=== PATIENT | male | born 1955 | race Caucasian/White ===

== ENCOUNTER 2016-10-07 05:58 | Inpatient (IN) | payer BC ==
[2016-09-24 15:30] VITALS: BMI 33.0
--- NOTE | 2016-09-24 15:57 | PAT Medication Instructions ---
Service Date Sep 24, 2016. Current Home Medication List Fish Oil ([place]-3), 1 CAP PO QAM Tqvlhzjremw-Qmdqohyeogk-Tkwvdb (Move Free Joint Health Ad), 1 TAB PO QAM Lisinopril (Zestril), 30 MG PO QAM Meloxicam (Mobic), 15 MG PO QAM Metformin Hcl (Glucophage), 1,000 MG PO BID Multivitamin (Multivitamin), 1 TAB PO QAM Sitagliptin Phosphate (Januvia), 100 MG PO QAM Medication Instructions For Your Scheduled Surgery - Hold the following medications as of 09/25/16: Fish Oil ([place]-3), 1 CAP PO QAM Mkfcjukhaqu-Bsecqtikmsm-Stlpwv (Move Free Joint Health Ad), 1 TAB PO QAM - Hold the following medications 48 hours prior to surgery: Metformin Hcl (Glucophage), 1,000 MG PO BID - Hold the following medications the morning of surgery: Lisinopril (Zestril), 30 MG PO QAM Multivitamin (Multivitamin), 1 TAB PO QAM Sitagliptin Phosphate (Januvia), 100 MG PO QAM Meloxicam (Mobic), 15 MG PO QAM (otherwise okay to continue per surgeon) Nothing to eat or drink after midnight If you have any questions please call us at [phone] or [phone] or [phone]
--- NOTE | 2016-09-24 16:36 | DIAGNOSTIC IMAGING REPORT ---
CHEST PREADMISSION(PA/LAT) CLINICAL HISTORY: PAT preoperative evaluation COMPARISON STUDY: No previous studies for comparison. FINDINGS: The bones soft tissues and hemidiaphragms are normal. The cardiomediastinal silhouette is normal. The lungs are clear. The pulmonary vasculature is normal. IMPRESSION: Negative chest. The above report was generated using voice recognition software. It may contain grammatical, syntax or spelling errors. Electronically signed by: Gold Mitchell M.D. 09/24/2016 4:35 PM Dictated Date/Time: 09/24/2016 4:35 PM
[2016-09-24 16:37] LABS: BASO % 0.2 %; BASO ABS # 0.01 K/uL (0-0.2); COMPLETE YES; EOS % 1.2 %; HEMATOCRIT 40.1 % (42-52); LYMPH % 30.5 %; LYMPH ABS # 1.23 K/uL (1.2-3.4); MEAN CELL VOLUME 90.5 fL (80-100); MEAN CORPUSCULAR HEMOGLOBIN 31.4 pg (25-34); MEAN CORPUSCULAR HGB CONC 34.7 g/dl (32-36); MEAN PLATELET VOLUME 9.3 fL (7.4-10.4); MONO % 11.9 %; NEUT % 56.2 %; PLATELET COUNT 212 K/uL (130-400); RED BLOOD COUNT 4.43 M/uL (4.7-6.1); WHITE BLOOD COUNT 4.03 K/uL (4.8-10.8)
[2016-09-24 16:40] LABS: URINE APPEARANCE CLEAR (CLEAR); URINE BILIRUBIN NEG (NEG); URINE COLOR YELLOW; URINE NITRITE NEG (NEG); URINE PH 7.5 (4.5-7.5); URINE SPECIFIC GRAVITY 1.022 (1.000-1.030); UROBILINOGEN NEG (NEG)
[2016-09-24 16:44] LABS: CALCIUM 8.6 mg/dl (8.5-10.1); CREATININE 0.88 mg/dl (0.60-1.40)
[2016-09-24 16:49] LABS: MANUAL MICROSCOPIC REQUIRED? NO; REVIEW REQ? NO
[2016-09-24 16:52] LABS: PARTIAL THROMBOPLASTIN RATIO 0.9; PROTHROMBIN TIME (PATIENT) 10.6 SECONDS (9.0-12.0)
[2016-09-25 07:43] LABS: ESTIMATED AVERAGE GLUCOSE 160 mg/dl; HA1C FLAG Normal (Normal)
--- NOTE | 2016-10-04 14:58 | HISTORY & PHYSICAL EXAMINATION ---
DATE OF ADMISSION: 10/07/2016 CHIEF COMPLAINT: Bilateral knee pain. HISTORY OF PRESENT ILLNESS: The patient is a 61-year-old gentleman with known severe osteoarthritis about his bilateral knees. He has been doctoring with an outside physician. He takes diclofenac daily. He presented to our office for evaluation as a potential knee replacement candidate. He now desires to proceed with bilateral total knee arthroplasty. PAST MEDICAL HISTORY: Hypertension and type 2 diabetes. PAST SURGICAL HISTORY: Two surgeries on the left knee and one surgery on the right knee. MEDICATIONS: Include glyburide 5 mg q.a.m. before breakfast, metformin 500 mg 2 times daily, lisinopril 20 mg daily, diclofenac sodium 75 mg twice daily, and fish oil daily. ALLERGIES: No known drug allergies. SOCIAL HISTORY AND REVIEW OF SYSTEMS: Noncontributory. PHYSICAL EXAMINATION: GENERAL: Well-nourished and well-developed male who appears his stated age. HEENT: Normocephalic and atraumatic. Extraocular movements intact. Oropharynx is pink and moist. NECK: Supple without adenopathy. LUNGS: Clear to auscultation bilaterally. HEART: Regular rate and rhythm. ABDOMEN: Soft, nontender, and nondistended. EXTREMITIES: The upper extremities are within normal limits. The bilateral knees have a severe varus deformity. He complains primarily of medial compartment pain. His range of motion is from 0-120 degrees. X-RAYS: X-rays were reviewed. He has severe varus aligned knees. He has complete loss of the medial joint space in both knees. He has medial osteophytes bilaterally. He has moderate degenerative change about the bilateral patellofemoral joints as well. ASSESSMENT: Bilateral knee degenerative joint disease. PLAN: Risks versus benefits were discussed and consent was obtained. The patient's primary care physician is Dr. Johnson from [place]. We will proceed with bilateral total knee arthroplasty upon preoperative workup and medical clearance.
[2016-10-07] VITALS (19 sets, daily range): BP systolic 111–158; BP diastolic 65–100; PULSE 61–97; TEMP 36.3–36.7; O2SAT 95–99; Ht 177.8 cm; Wt 103.6 kg
[~2016-10-07] VITALS: Ht 177.8 cm; Wt 103.6 kg
[~2016-10-07 05:58] MED LIST: GLUC1TAB94 PO; LISI1TAB3 PO; MELO7.5T5 PO; METF-384 PO; MULT-506 PO; OMEG10007 PO; SITA100T3 PO
[2016-10-07] MEDS ORDERED: CeleBREX 200 MG CAP PO SCH (06:00)
[2016-10-07] MEDS ORDERED: LACTATED RINGER'S 1000ML IV SCH (06:00)
[2016-10-07] MEDS ORDERED: LACTATED RINGER'S 1000ML 1,000 ML IV SCH (06:00)
[2016-10-07] MEDS ORDERED: ROPIVACAINE 5MG/ML 30 ML 150 MG, BUPIVACAINE/EPINEPHR 0.5% MPF 30 ML, KETOROLAC TROMETH... INFIL SCH ×7 (06:00)
[2016-10-07] MEDS ORDERED: ACETAMINOPHEN 500 MG TAB PO SCH (06:00)
[2016-10-07] MEDS ORDERED: CEFAZOLIN 2000 MG/60 ML D5W 60 ML IV SCH (06:00)
[2016-10-07] MEDS ORDERED: LACTATED RINGER'S 1000ML 500 ML IV ONE (06:00)
[2016-10-07] MEDS ORDERED: DEXAMETHASONE 4 MG TAB PO SCH (06:00)
[2016-10-07] MEDS ORDERED: GABAPENTIN 300 MG CAP PO SCH (06:00)
[2016-10-07] MEDS ORDERED: METOCLOPRAMIDE HCL 10 MG TAB PO SCH (06:00)
[2016-10-07] MEDS ORDERED: FAMOTIDINE 20 MG TAB PO SCH (06:00)
[2016-10-07] MEDS ORDERED: PROPOFOL IV EMULSION 10 MG/ML 20 ML VIAL IV ONE ×2 (06:44→10:05)
[2016-10-07] MEDS ORDERED: FENTANYL CITRATE INJ 50 MCG/1 ML 2 ML VIAL ONE ×3 (06:44→10:12)
[2016-10-07] MEDS ORDERED: LIDOCAINE HCL 2% 2 ML VIAL (20MG/ML) ONE (06:44)
[2016-10-07] MEDS ORDERED: MIDAZOLAM HCL 1 MG/ML 2ML VIAL ONE (06:44)
--- NOTE | 2016-10-07 07:02 | History & Physical Bridge Note ---
H&P Re-Evaluation Bridge Note: I have examined the patient, reviewed the History & Physical and in the interval since the performance of the History & Physical I have noted the following changes of clinical significance: No changes noted
[2016-10-07] MEDS ORDERED: BUPIVACAINE 0.5 % 5 MG/1 ML PF 10ML VIAL ONE (07:28)
[2016-10-07] MEDS ORDERED: BUPIVACAINE 0.25% 30 ML VIAL ONE (07:28)
[2016-10-07] MEDS ORDERED: ATROPINE SULFATE 0.1 MG/ML 5ML SYR IV PRN (07:45)
[2016-10-07] MEDS ORDERED: FENTANYL CITRATE INJ 50 MCG/1 ML 2 ML VIAL IV PRN (07:45)
[2016-10-07] MEDS ORDERED: EpHEDrine SULFATE INJ 50 MG/ML AMP IV PRN (07:45)
[2016-10-07] MEDS ORDERED: ONDANSETRON INJ 2 MG/ML 2 ML VIAL IV PRN (07:45)
[2016-10-07] MEDS ORDERED: ORTHO JOINT ANESTHETIC ONE (08:03)
[2016-10-07] MEDS ORDERED: POVIDONE-IODINE OP SOLN 30 ML BTL ONE (08:04)
[2016-10-07] MEDS ORDERED: BACITRACIN 50000 UNIT VIAL ONE (08:04)
[2016-10-07] MEDS ORDERED: EpHEDrine SULFATE INJ 50 MG/ML AMP ONE (09:15)
--- NOTE | 2016-10-07 10:41 | [facility] Post Operative Brief Note ---
Immediate Operative Summary Operative Date Oct 07, 2016. Pre-Operative Diagnosis Bilateral knee degenerative joint disease Post-Operative Diagnosis same as pre-operative Procedure(s) Performed Bilateral Total Knee Arthroplasty Surgeon Dr. Lowell Salmon Order Processing Clerk Surgeon(s) Lawanda Garcia PA-C Estimated Blood Loss 20ml Findings Severe OA bilat Specimens A: Left knee bone and tissue B: Right knee bone and tissue Disposition Recovery Room / PACU
[2016-10-07] MEDS ORDERED: ALUMINUM/MAGNESIUM/SIMETH (MAALOX MAX) 30 ML UDC PO PRN (11:30)
[2016-10-07] MEDS ORDERED: ZOLPIDEM TARTRATE 5 MG TAB PO PRN (11:30)
[2016-10-07] MEDS ORDERED: DiphenhydrAMINE HCL 50 MG/ML VIAL IV PRN (11:30)
[2016-10-07] MEDS ORDERED: BISACODYL 10 MG SUPP PR PRN (11:30)
[2016-10-07] MEDS ORDERED: SOD PHOSPHATE/SOD BIPHOSPHATE ENEMA 132 ML BTL PR PRN (11:30)
[2016-10-07] MEDS ORDERED: MAGNESIUM HYDROXIDE SUSP 30 ML UDC PO PRN (11:30)
--- NOTE | 2016-10-07 11:38 | Anesthesiology Progress Note ---
Anesthesia Post Op Note Date & Time Oct 07, 2016 at 11:38 Vital Signs Pain Intensity: 0 Vital Signs Past 12 Hours Date Time Temp Pulse Resp B/P (MAP) Pulse Ox O2 Delivery O2 Flow Rate FiO2 10/07/16 11:25 67 16 124/77 97 Mask 2 10/07/16 11:15 70 16 116/72 99 Mask 10 10/07/16 11:07 36.5 77 16 113/75 100 Mask 10 10/07/16 06:36 36.7 74 20 149/100 97 Room Air Notes Mental Status: alert / awake / arousable, participated in evaluation Pt Amnestic to Procedure: Yes Nausea / Vomiting: adequately controlled Pain: adequately controlled Airway Patency, RR, SpO2: stable & adequate BP & HR: stable & adequate Hydration State: stable & adequate Neuraxial Anesthesia: was administered, sensory block is resolving Anesthetic Complications: no major complications apparent
[2016-10-07] MEDS ORDERED: DEXTROSE 50% 50 ML SYR IV PRN (12:00)
[2016-10-07] MEDS ORDERED: GLUCOSE 10 TABS/TUBE PO PRN (12:00)
[2016-10-07] MEDS ORDERED: GLUCAGON FOR INJ 1 MG VIAL SQ PRN (12:00)
[2016-10-07] MEDS ORDERED: PHARMACY GLYCEMIC MGMT CONSULT PRN (12:00)
[2016-10-07] MEDS ORDERED: GLUCOSE 40% GEL 15 GM TUBE PO PRN (12:00)
--- NOTE | 2016-10-07 12:03 | DIAGNOSTIC IMAGING REPORT ---
RIGHT KNEE 1 OR 2 VIEWS ROUTINE CLINICAL HISTORY: Postoperative evaluation. COMPARISON: None FINDINGS: Alignment of the total right knee arthroplasty is anatomic. There is no fracture or unexpected radiopaque foreign body. Drains are in place. IMPRESSION: Expected findings following total right knee arthroplasty. Electronically signed by: Willem Pearl M.D. 10/07/2016 12:02 PM Dictated Date/Time: 10/07/2016 12:01 PM
--- NOTE | 2016-10-07 12:03 | DIAGNOSTIC IMAGING REPORT ---
LEFT KNEE 1 OR 2 VIEWS ROUTINE CLINICAL HISTORY: Postoperative evaluation. COMPARISON: None FINDINGS: Alignment of the total left knee arthroplasty is anatomic. There is no fracture or unexpected radiopaque foreign body. Drains are in place. IMPRESSION: Expected findings following total left knee arthroplasty. Electronically signed by: Willem Pearl M.D. 10/07/2016 12:01 PM Dictated Date/Time: 10/07/2016 12:01 PM
[2016-10-07] MEDS: SODIUM CHLORIDE 0.9% 1000ML 1,000 ML IV SCH ×2 (13:18→21:33)
[2016-10-07] MEDS ORDERED: HydrALAZINE HCL 20 MG/ML VIAL IV. PRN (13:45)
--- NOTE | 2016-10-07 13:53 | Medical Consult ---
Consultation Date of Consultation: Oct 07, 2016. Attending Physician: Lowell Salmon M.D. Reason for Consultation: Postop medical management History of Present Illness Patient is a 61 y/o male, with PMHx of HTN and T2DM, s/p bilateral total knee arthroplasty by Dr. Salmon on 10/07. Surgery went well, with no reported complications. Patient currently alert/oriented x3. Complains of bilateral feel numbness, slowly resolving postop. Pain is well controlled. No BM/flatus postop. Patient denies any fever, chills, sweats, lightheadedness, dizziness, vision changes, CP, palpitations, edema, SOB, wheezing, cough, abdominal pain, nausea, vomiting, diarrhea, urinary symptoms, melena, weakness, muscle/joint pain, anxiety/depression, active bleeding, or new skin discoloration/changes. Past Medical/Surgical History Past Medical History: HTN T2DM Past Surgical History: Left knee surgery Right knee surgery Hernia repair Elbow surgery Social History Smoking Status: Former Smoker Marital Status: Housing Status: lives with family Allergies Coded Allergies: No Known Allergies (Unverified , 10/07/16) Home Medications Reported Home Medications Medications Dose Route/Sig Max Daily Dose Days Date Category Multivitamin (Multivitamins) Tab 1 Tab PO QAM 09/24/16 Reported [place]-3 (Fish Oil) 1 Ea Cap 1 Cap PO QAM 09/24/16 Reported Move Free Joint Health Ad (Lexkkqaafht-Idfzxekutnn-Bkxdmp) 1 Tab Tab 1 Tab PO QAM 09/24/16 Reported Mobic (Meloxicam) 7.5 Mg Tab 15 Mg PO QAM 09/24/16 Reported Zestril (Lisinopril) 30 Mg Tab 30 Mg PO QAM 09/24/16 Reported Glucophage (Metformin Hcl) 1,000 Mg Tab 1,000 Mg PO BID 09/24/16 Reported Januvia (Sitagliptin Phosphate) 100 Mg Tab 100 Mg PO QAM 09/24/16 Reported Current Inpatient Medications Current Inpatient Medications Medications (Trade) Dose Ordered Sig/Patric Route Start Time Stop Time Status Last Admin Dose Admin Lactated Ringer's 1,000 ml @ 15 mls/hr Q24H IV 10/07/16 06:00 10/08/16 05:59 Lactated Ringer's 1,000 ml @ 60 mls/hr [id number] IV 10/07/16 06:00 10/07/16 22:39 Cefazolin Sodium 60 ml @ 100 mls/hr PREOP IV 10/07/16 06:00 10/07/16 18:00 Acetaminophen (Tylenol Tab) 1,000 mg PREOP PO 10/07/16 06:00 10/07/16 18:00 10/07/16 07:00 1,000 MG Celecoxib (CeleBREX CAP) 200 mg PREOP PO 10/07/16 06:00 10/07/16 18:00 10/07/16 07:02 200 MG Dexamethasone (Decadron Tab) 8 mg PREOP PO 10/07/16 06:00 10/07/16 18:00 10/07/16 06:59 8 MG Famotidine (Pepcid Tab) 20 mg PREOP PO 10/07/16 06:00 10/07/16 18:00 10/07/16 06:59 20 MG Gabapentin (Neurontin Cap) 600 mg PREOP PO 10/07/16 06:00 10/07/16 18:00 10/07/16 06:59 600 MG Metoclopramide HCl (Reglan Tab) 10 mg PREOP PO 10/07/16 06:00 10/07/16 18:00 10/07/16 07:01 10 MG Tranexamic Acid 1000 mg/Sodium Chloride 110 ml @ 660 mls/hr TODAY@06,0630 IV 10/07/16 06:00 10/07/16 18:00 Sodium Chloride 1,000 ml @ 100 mls/hr Q10H IV 10/07/16 11:22 10/08/16 11:21 10/07/16 13:18 100 MLS/HR Cefazolin Sodium 2000 mg/Dextrose 60 ml @ 100 mls/hr Q8H IV 10/07/16 11:30 10/07/16 20:05 UNV Celecoxib (CeleBREX CAP) 200 mg BID PO 10/07/16 21:00 11/06/16 20:59 UNV Oxycodone HCl (Roxicodone Immediate Rel Tab) 1 TABLET FOR PAIN RATING... Q4H PRN PO 10/07/16 11:30 10/21/16 11:29 Oxycodone HCl (Oxycontin Tab) 10 mg Q12 PO 10/07/16 21:00 10/21/16 20:59 Morphine Sulfate (MoRPHine SULFATE INJ) 2 mg Q4H PRN IV 10/07/16 11:30 10/21/16 11:29 Acetaminophen (Tylenol Tab) 1,000 mg Q8H PO 10/07/16 11:30 11/06/16 11:29 UNV Magnesium Hydroxide (Milk Of Magnesia Susp) 30 ml Q6H PRN PO 10/07/16 11:30 11/06/16 11:29 Bisacodyl (Dulcolax Supp) 10 mg DAILY PRN AK 10/07/16 11:30 11/06/16 11:29 Sodium Biphosphate/ Sodium Phosphate (Fleet Enema) 132 ml DAILY PRN AK 10/07/16 11:30 11/06/16 11:29 Senna (Senokot Tab) 17.2 mg HS PO 10/07/16 21:00 11/06/16 20:59 UNV Diphenhydramine HCl (Benadryl Inj) 25 mg Q8H PRN IV 10/07/16 11:30 11/06/16 11:29 Al Hydrox/Mg Hydrox/Simethicone (Maalox Max Susp) 15 ml Q4H PRN PO 10/07/16 11:30 11/06/16 11:29 Zolpidem Tartrate (Ambien Tab) 5 mg HSZ PRN PO 10/07/16 11:30 11/06/16 11:29 Multivitamins (Multivitamin Tab) 1 tab QAM PO 10/08/16 09:00 11/07/16 08:59 UNV Ondansetron HCl (Zofran Inj) 4 mg Q6H PRN IV 10/07/16 11:30 11/06/16 11:29 Pantoprazole Sodium (Protonix Tab) 40 mg QAM PO 10/08/16 09:00 11/07/16 08:59 UNV Ketorolac Tromethamine (Toradol Inj) 30 mg Q6H IV. 10/07/16 11:30 10/09/16 11:29 UNV Dexamethasone (Decadron Tab) 8 mg ONE PO 10/08/16 07:30 10/08/16 07:31 UNV Aspirin (Ecotrin Tab) 81 mg BID PO 10/07/16 21:00 11/06/16 20:59 UNV Miscellaneous Information (Consult Glycemic Management Pharmacy) 1 ea UD PRN N/A 10/07/16 12:00 11/06/16 11:59 Lisinopril (Zestril Tab) 30 mg QAM PO 10/08/16 09:00 11/07/16 08:59 UNV Glucose (Glucose 40% Gel) 15-30 GRAMS 15 GRAMS... UD PRN PO 10/07/16 12:00 11/06/16 11:59 Glucose (Glucose Chew Tab) 4-8 Tablets 4 Tabl... UD PRN PO 10/07/16 12:00 11/06/16 11:59 Dextrose (Dextrose 50% 50ML Syringe) 25-50ML OF 50% DW IV FOR... UD PRN IV 10/07/16 12:00 11/06/16 11:59 Glucagon (Glucagon Inj) 1 mg UD PRN SQ 10/07/16 12:00 11/06/16 11:59 Physical Exam Date Time Temp Pulse Resp B/P (MAP) Pulse Ox O2 Delivery O2 Flow Rate FiO2 10/07/16 13:16 36.6 67 20 158/95 (116) 97 Nasal Cannula 2.0 10/07/16 13:08 97 Nasal Cannula 2.0 10/07/16 12:50 36.5 72 20 146/80 (102) 97 Nasal Cannula 4.0 10/07/16 12:20 36.6 68 16 121/72 95 Mask 2 10/07/16 12:05 64 16 125/73 95 Mask 2 10/07/16 11:55 36.6 65 16 106/64 95 Mask 2 10/07/16 11:45 36.6 69 16 114/80 95 Mask 2 10/07/16 11:35 69 16 117/77 95 Mask 2 10/07/16 11:25 67 16 124/77 97 Mask 2 10/07/16 11:15 70 16 116/72 99 Mask 10 10/07/16 11:07 36.5 77 16 113/75 100 Mask 10 10/07/16 06:36 36.7 74 20 149/100 97 Room Air General Appearance: WD/WN, no apparent distress, + pertinent finding (2L O2 NC) Head: normocephalic, atraumatic Eyes: PERRL ENT: hearing grossly normal Neck: supple Respiratory/Chest: lungs clear, no respiratory distress, no accessory muscle use Cardiovascular: regular rate, rhythm Abdomen/GI: normal bowel sounds, non tender, soft Back: normal inspection Extremities/Musculoskelatal: no calf tenderness, no pedal edema Neurologic/Psych: alert, normal mood/affect, oriented x 3 Skin: normal color, warm/dry, no rash Laboratory Results Last 24 Hours Test 10/07/16 06:26 10/07/16 11:14 Bedside Glucose 151 mg/dl 203 mg/dl Assessment & Plan Patient is a 61 y/o male, with PMHx of HTN and T2DM, s/p bilateral total knee arthroplasty by Dr. Salmon on 10/07. Osteoarthritis s/p bilateral total knee arthroplasty by Dr. Salmon on 10/07: - Surgical/pain management, PT/OT, and DVT prophylaxis as per primary team - Encouraged incentive spirometer - Bowel regimen ordered - Follow postop CBC and PRP HTN: - Hold Lisinopril 30 mg daily pending postop PRP - Hydralazine 10 mg IV q6 hrs PRN for sbp >180 or dbp >100 T2DM- HgbA1c 7.2% on 09/24: - Hold Januvia and Metformin - BSG ACHS and sliding insulin scale GI prophylaxis: Protonix DVT prophylaxis: As per primary team- ASA 81 mg Code Status: LEVEL I, FULL Dispo: As per primary team Thank you for this consultation. We will continue to follow throughout hospital stay. i personally examined pt and verified all álvarez points w T Murarik PAC feeling ok overall not much pain. no other complaints. all other ROS otherwise negative except for as above vitals noted nad breathing unlabored no pallor or icterus DM - A1c as above, med management HTN - continue to follow, hold ACEi as above
[2016-10-07] MEDS: TRANEXAMIC ACID INJ 1,000 MG in SODIUM CHLORIDE 0.9% 100ML 100 ML IV SCH ×2 (13:55→13:56)
[2016-10-07] MEDS ORDERED: INSULIN GLARGINE SOLOSTAR 100 UNITS/ML 3 ML PEN SC SCH ×2 (14:45→17:15)
--- NOTE | 2016-10-07 14:49 | Pharmacy Progress Note ---
Glycemic Control Intl Consult Date of Service Oct 07, 2016. Scope Glycemic Pharmacist consulted by Flavio Garcia PA-C on 10/07/16 for glycemic control and to write orders per [facility] inpatient glycemic control protocol Objective Weight (Kilograms): 103.600 Accuchecks BSG (last 24hrs): Test 10/07/16 06:26 10/07/16 11:14 Bedside Glucose 151 mg/dl (70-99) 203 mg/dl (70-99) HbA1c Test 09/24/16 16:06 Hemoglobin A1c 7.2 % (4.5-5.6) H Recent Pertinent Medications Outpatient Anti-diabetic Regimen: * metformin + januvia PO * A1c = 7.2 % 09/24/16 Risk Factors for Insulin Resistance: * Steroids * Recent Surgery * Diet Assessment & Plan ASSESSMENT: * 61 yo diabetic M, POD #0 s/p bilateral knees * Pt is maintained on oral antidiabetic agents as an outpatient * Oral agents are not recommended for inpatient use d/t drug interactions, changing PO intake, and difficulty titrating for acute hyper/hypoglycemia. ADA recommends re-initiating outpatient oral agents 1-2 days prior to discharge if/ when appropriate if they were held on admission. * Will hold oral agents for admission and utilize SQ basal bolus insulin regimen which is the recommended regimen for inpatient glycemic control. * Will initiate weight based insulin dosing for insulin ryley patient and titrate based on BSG trends. * Given dexamethasone PO X 1 preop and X 1 post op, expect patient to need aggressive insulin dosing for 24-48 hours * ADA & AACE recommend a goal blood sugar range 140-180 mg/dl for the majority of critically ill & non-critically ill patients. However, more stringent targets may be selected in individual cases. Tighten to 110-140 mg/dL as it is crucial to maintain tight control immediately post-op to avoid infection. PLAN FOR INPATIENT GLYCEMIC CONTROL: * Holding outpatient oral diabetes medications * Initiate 24 hour prior to discharge * Basal insulin with LANTUS 35 units SQ X 1 now * Give Lantus X 1 in the AM for BSG >140 * Correctional Insulin with NOVOLOG per scale ACHS + 0200 check * Goal Range: Low 110 mg/dL - High 140 mg/dL * Correction Factor: 15 mg/dL/unit * Nutritional / Prandial insulin per carb ratio of 1 unit per 5 grams CHO consumed * Loosen coverage when orals restarted * Please note that the plan above was derived based on current level of insulin resistance and hospital stress. These recommendations are appropriate for inpatient admission only. Plan of care upon discharge will need to be reassessed to avoid potential outpatient hypo/hyperglycemia. Thank you.
--- NOTE | 2016-10-07 15:23 | OPERATIVE REPORT ---
DATE OF OPERATION: 10/07/2016 PREOPERATIVE DIAGNOSIS: Osteoarthritis, bilateral knees. POSTOPERATIVE DIAGNOSIS: Osteoarthritis, bilateral knees. PROCEDURE: Bilateral total knee arthroplasty. SURGEON: Dr. Salmon. SANDBLAST OR SHOTBLAST EQUIPMENT TENDER: Lawanda Garcia PA-C ANESTHESIA: Spinal. COMPLICATIONS: None. IMPLANTS USED: First on the left; femoral size 6, tibia size 5, patella size 39, and poly size 16. Right; femur 6, tibia 5, patella 39, and poly 13. OPERATION AND FINDINGS: LEFT LEG: Following induction of spinal anesthesia, the patient's left leg was prepped and draped in the usual sterile manner. Limb was exsanguinated with an Esmarch bandage and tourniquet was inflated to 350 mmHg. A longitudinal incision was made anteriorly. Subcutaneous tissue was sharply dissected. Electrocautery was used for hemostasis. Prepatellar bursa was incised and median parapatellar incision was performed. Patella was everted and the knee was flexed. Fat pad was removed to aid in visualization and the anterior and posterior cruciate ligaments were removed. The medial face of the tibia was cleared of soft tissue first with a Bovie and a Sanders elevator. This tissue was retracted posteriorly using a blunt Hohmann. A Glover retractor was used to expose the synovium above on the anterior aspect of the femur and this was removed down to bone. The PSI guide was placed on the distal femur and two pins were placed anteriorly and kept in position and two additional pins were placed distally and removed. The distal femoral cutting block was placed in position and the distal femoral cut was used in the +0 setting. Next, the cutting block was removed and the 6 block was placed in the distal end of the femur. Care was taken to ensure appropriate external rotation and feeler gauge was used to ensure no notching would occur. The femoral block was centered on the distal femur and in the medial and lateral direction and was fixed using two bone screws. The gold pins were then removed. The oscillating saw was used to create the bone cuts and the distal femoral cutting block was removed and the reciprocating saw was used to further trim the femoral cuts as well as a deep in the area for the trochlear groove. Next, posterior condyle remnants were removed. Following this, a meniscal clamp and knife were utilized to remove the anterior portion of both medial and lateral meniscus. The proximal tibia PSI guide was placed into position and the proximal tibial cutting guide was screwed into position. The extra medullary alignment guide was utilized to ensure appropriate alignment. The proximal tibia was cut and the proximal tibial cutting block was removed and this bone fragment was removed. The appropriate guide was used to perform the notch cut on the distal femur and a lamina licensing representative and a cochlear knife were utilized to finish both medial and lateral meniscectomies to remove any remnants of the posterior or anterior cruciate ligaments. Following this, the distal femoral component was impacted into position and blunt Tamir was used to sublux the tibia anteriorly. The proximal tibia was sized and a 5 tibial tray was chosen as the size to be used. This was put into position and appropriate external rotation and a double check with extramedullary alignment guide was performed. The canal for the tibial stem was prepared first with a 17 mm drill and then the punch and a mallet and the trial tibial poly was placed. A 16 was chosen the size to be used. It was brought to extension and the patella was prepared with the patellar reamer. A 39 component was chosen the size to be used. The trial component was placed and knee was taken through a full range of motion and there was found to be no lateral subluxation of the tibia. No lateral release was required. The trials were all removed. The final components were obtained and assembled. Cement was mixed. The knee was thoroughly irrigated and the ortho mix was injected about the knee joint. The final components were cemented into position. After thoroughly suctioning and drying the bone ends, all excess cement was removed. The knee was held in extension while the cement hardened. The wound was irrigated and closed over a Hemovac drain. #1 Vicryl was used to close the extensor mechanism. Subcutaneous tissues closed using 0 Dexon. Skin was closed with geovanni. Sterile dressing of Adaptic, 4 x 4's, sterile Webril, and Ramiro was applied. The patient tolerated the procedure well. RIGHT LEG: Following induction of spinal anesthesia, the patient's right leg was prepped and draped in the usual sterile manner. Limb was exsanguinated with an Esmarch bandage and tourniquet was inflated to 350 mmHg. A longitudinal incision was made anteriorly. Subcutaneous tissue was sharply dissected. Electrocautery was used for hemostasis. Prepatellar bursa was incised and median parapatellar incision was performed. Patella was everted and the knee was flexed. Fat pad was removed to aid in visualization and the anterior and posterior cruciate ligaments were removed. The medial face of the tibia was cleared of soft tissue first with a Bovie and a Sanders elevator. This tissue was retracted posteriorly using a blunt Hohmann. A Glover retractor was used to expose the synovium above on the anterior aspect of the femur and this was removed down to bone. The PSI guide was placed on the distal femur and two pins were placed anteriorly and kept in position and two additional pins were placed distally and removed. The distal femoral cutting block was placed in position and the distal femoral cut was used in the +0 setting. Next, the cutting block was removed and the 6 block was placed in the distal end of the femur. Care was taken to ensure appropriate external rotation and feeler gauge was used to ensure no notching would occur. The femoral block was centered on the distal femur and in the medial and lateral direction and was fixed using two bone screws. The gold pins were then removed. The oscillating saw was used to create the bone cuts and the distal femoral cutting block was removed and the reciprocating saw was used to further trim the femoral cuts as well as a deep in the area for the trochlear groove. Next, posterior condyle remnants were removed. Following this, a meniscal clamp and knife were utilized to remove the anterior portion of both medial and lateral meniscus. The proximal tibia PSI guide was placed into position and the proximal tibial cutting guide was screwed into position. The extra medullary alignment guide was utilized to ensure appropriate alignment. The proximal tibia was cut and the proximal tibial cutting block was removed and this bone fragment was removed. The appropriate guide was used to perform the notch cut on the distal femur and a lamina licensing representative and a cochlear knife were utilized to finish both medial and lateral meniscectomies to remove any remnants of the posterior or anterior cruciate ligaments. Following this, the distal femoral component was impacted into position and blunt Tamir was used to sublux the tibia anteriorly. The proximal tibia was sized and a 5 tibial tray was chosen as the size to be used. This was put into position and appropriate external rotation and a double check with extramedullary alignment guide was performed. The canal for the tibial stem was prepared first with a 17 mm drill and then the punch and a mallet and the trial tibial poly was placed. A 13 was chosen the size to be used. It was brought to extension and the patella was prepared with the patellar reamer. A 39 component was chosen the size to be used. The trial component was placed and knee was taken through a full range of motion and there was found to be no lateral subluxation of the tibia. No lateral release was required. The trials were all removed. The final components were obtained and assembled. Cement was mixed. The knee was thoroughly irrigated and the ortho mix was injected about the knee joint. The final components were cemented into position. After thoroughly suctioning and drying the bone ends, all excess cement was removed. The knee was held in extension while the cement hardened. The wound was irrigated and closed over a Hemovac drain. #1 Vicryl was used to close the extensor mechanism. Subcutaneous tissues closed using 0 Dexon. Skin was closed with geovanni. Sterile dressing of Adaptic, 4 x 4's, sterile Webril, and Ramiro was applied. The patient tolerated the procedure well. Due to the complex nature of the procedure, the entire surgery was performed with the operational assistance of Lawanda Garcia PA-C. The graduate assistant athletic trainer, under direct supervision, was involved in the actual performance of all aspects of the surgical procedure including hemostasis, tissue retraction and incision, instrument management, patient positioning, and wound closure. I attest to the content of the Intraoperative Record and any orders documented therein. Any exception s are noted below.
[2016-10-07] MEDS: KETOROLAC TROMETHAMINE 30 MG/ML VIAL IV. SCH ×2 (15:45→21:25)
[2016-10-07] MEDS: MoRPHine SULFATE 2 MG/ML CARP IV PRN (17:02)
[2016-10-07] MEDS: CEFAZOLIN IV 2,000 MG in DEXTROSE 5% 50ML 50 ML IV SCH (18:32)
[2016-10-07] MEDS: INSULIN ASPART 100 UNITS/ML 3 ML PEN SC SCH ×2 (18:36→21:29)
[2016-10-07] MEDS: ASPIRIN 81 MG ECTAB PO SCH (21:26)
[2016-10-07] MEDS: SENNA 8.6 MG TAB PO SCH (21:26)
[2016-10-07] MEDS: ACETAMINOPHEN 500 MG TAB PO SCH (21:27)
[2016-10-07] MEDS: OXYCODONE HCL 10 MG TABCR (OXYCONTIN) PO SCH (21:33)
[2016-10-08] VITALS (9 sets, daily range): BP systolic 108–133; BP diastolic 65–81; PULSE 61–69; TEMP 36.3–36.8; O2SAT 93–96
[2016-10-08] MEDS ORDERED: INSULIN ASPART 100 UNITS/ML 3 ML PEN SC SCH (02:00)
[2016-10-08] MEDS: MoRPHine SULFATE 2 MG/ML CARP IV PRN (02:09)
[2016-10-08] MEDS: CEFAZOLIN IV 2,000 MG in DEXTROSE 5% 50ML 50 ML IV SCH (02:10)
[2016-10-08] MEDS: ONDANSETRON INJ 2 MG/ML 2 ML VIAL IV PRN ×3 (02:13→20:34)
[2016-10-08] MEDS: OXYCODONE HCL IR 5 MG TAB (IMMEDIATE RELEASE) PO PRN ×2 (03:26→11:33)
[2016-10-08] MEDS: KETOROLAC TROMETHAMINE 30 MG/ML VIAL IV. SCH ×4 (04:06→22:00)
[2016-10-08] MEDS: ACETAMINOPHEN 500 MG TAB PO SCH ×3 (05:40→22:00)
[2016-10-08] MEDS: SODIUM CHLORIDE 0.9% 1000ML 1,000 ML IV SCH ×2 (05:42→08:32)
[2016-10-08 05:53] LABS: HEMATOCRIT 35.7 % (42-52); MEAN CELL VOLUME 89.9 fL (80-100); MEAN CORPUSCULAR HEMOGLOBIN 31.2 pg (25-34); MEAN CORPUSCULAR HGB CONC 34.7 g/dl (32-36); MEAN PLATELET VOLUME 9.2 fL (7.4-10.4); PLATELET COUNT 140 K/uL (130-400); RED BLOOD COUNT 3.97 M/uL (4.7-6.1); WHITE BLOOD COUNT 6.21 K/uL (4.8-10.8)
[2016-10-08 06:37] LABS: BUN/CREATININE RATIO 35.2 (10-20); CALCIUM 7.1 mg/dl (8.5-10.1); CREATININE 0.87 mg/dl (0.60-1.40); POTASSIUM 3.8 mmol/L (3.5-5.1)
[2016-10-08] MEDS ORDERED: DEXAMETHASONE 4 MG TAB PO ONE (07:30)
[2016-10-08] MEDS ORDERED: INSULIN GLARGINE SOLOSTAR 100 UNITS/ML 3 ML PEN SC SCH (08:00)
[2016-10-08] MEDS: OXYCODONE HCL 10 MG TABCR (OXYCONTIN) PO SCH ×2 (08:34→20:38)
[2016-10-08] MEDS: MULTIVITAMIN TAB PO SCH (08:34)
[2016-10-08] MEDS: ASPIRIN 81 MG ECTAB PO SCH ×2 (08:34→20:35)
[2016-10-08] MEDS: PANTOprazole SOD 40 MG TAB PO SCH (08:34)
[2016-10-08] MEDS: INSULIN ASPART 100 UNITS/ML 3 ML PEN SC SCH ×4 (08:42→20:43)
[2016-10-08] MEDS ORDERED: LISINOPRIL 20 MG TAB PO SCH (09:00)
--- NOTE | 2016-10-08 09:29 | Orthopedic Progress Note ---
Orthopedic Progress Note Date of Service Oct 08, 2016. Subjective Post OP Day: 1 Reports: feeling well, Denies: chest pain, SOB, nausea / vomiting, light headedness, calf pain Objective calves soft nontender, N/V intact, dressing C/D/I, A&O x3, toes mobile, hemovac drainage (ORTHOPAT) Date Time Temp Pulse Resp B/P (MAP) Pulse Ox O2 Delivery O2 Flow Rate FiO2 10/08/16 08:24 65 18 121/76 (91) 10/08/16 08:03 36.8 67 18 115/74 (88) 96 Room Air 10/08/16 07:47 36.5 66 18 113/79 (90) 96 Room Air 10/08/16 07:27 36.4 69 18 108/67 (81) 93 Room Air 10/08/16 03:35 36.3 63 16 115/69 (84) 96 Room Air 10/08/16 03:20 36.4 61 16 108/65 (79) 95 Room Air 10/08/16 03:05 36.5 61 16 109/68 (82) 95 Room Air 10/08/16 00:10 Room Air 10/07/16 23:45 36.3 61 18 121/83 (96) 97 Nasal Cannula 2.0 10/07/16 22:31 36.6 61 20 115/72 (86) 95 Nasal Cannula 2.0 10/07/16 22:00 36.3 66 16 126/70 (88) 98 Nasal Cannula 2.0 10/07/16 21:30 36.4 72 16 123/76 (92) 96 Nasal Cannula 2.0 10/07/16 21:15 36.4 72 16 123/79 (94) 98 Nasal Cannula 2.0 10/07/16 20:23 36.4 73 18 120/77 (91) 98 Nasal Cannula 2.0 10/07/16 20:00 97 Nasal Cannula 2.0 10/07/16 18:00 36.5 97 18 130/78 (95) 97 Nasal Cannula 2.0 10/07/16 17:30 36.6 76 20 128/78 (95) 99 Nasal Cannula 2.0 10/07/16 16:48 70 18 134/81 (98) 98 Room Air 10/07/16 15:28 36.4 73 18 111/67 (82) 96 Nasal Cannula 2.0 10/07/16 14:51 36.6 79 20 137/70 (92) 97 Nasal Cannula 2.0 10/07/16 14:25 36.7 76 20 116/65 (82) 10/07/16 13:53 36.7 76 20 122/70 (87) 96 Nasal Cannula 2.0 10/07/16 13:16 36.6 67 20 158/95 (116) 97 Nasal Cannula 2.0 10/07/16 13:08 97 Nasal Cannula 2.0 10/07/16 13:00 97 Nasal Cannula 2.0 10/07/16 12:50 36.5 72 20 146/80 (102) 97 Nasal Cannula 4.0 10/07/16 12:20 36.6 68 16 121/72 95 Mask 2 10/07/16 12:05 64 16 125/73 95 Mask 2 10/07/16 11:55 36.6 65 16 106/64 95 Mask 2 10/07/16 11:45 36.6 69 16 114/80 95 Mask 2 10/07/16 11:35 69 16 117/77 95 Mask 2 10/07/16 11:25 67 16 124/77 97 Mask 2 10/07/16 11:15 70 16 116/72 99 Mask 10 10/07/16 11:07 36.5 77 16 113/75 100 Mask 10 Laboratory Results 24 Hours: Test 10/08/16 05:24 Hematocrit 35.7 % Hemoglobin 12.4 g/dL Assessment & Plan Assessment: POD#1 SP BL TKAS Inhouse Planning Pain Management: Celebrex, Oxycontin, PO Tylenol, Oxy IR DVT Prophylaxis: TEDs, SCDs, ASA Discharge Planning Discharge Planning: rehab hospital (REQUESTING REFERRAL TO [facility])
--- NOTE | 2016-10-08 10:34 | Pharmacy Progress Note ---
Glycemic Control Progress Note Date of Service Oct 08, 2016. Scope Glycemic Pharmacist consulted for glycemic control to write orders per [facility] inpatient glycemic control protocol. Objective Accuchecks BSG (last 24hrs): Test 10/07/16 11:14 10/07/16 16:50 10/07/16 20:53 10/08/16 02:06 Bedside Glucose 203 mg/dl (70-99) 262 mg/dl (70-99) 111 mg/dl (70-99) Test 10/08/16 05:24 10/08/16 08:06 Random Glucose 142 mg/dl (70-99) Bedside Glucose 129 mg/dl (70-99) HbA1c: Test 09/24/16 16:06 Hemoglobin A1c 7.2 % (4.5-5.6) H Recent Pertinent Medications Outpatient Anti-diabetic Regimen: * metformin + januvia PO * A1c = 7.2 % 09/24/16 Risk Factors for Insulin Resistance: * Steroids * Recent Surgery * Diet Outpatient Anti-Diabetic Meds Oral Agents Assessment & Plan ASSESSMENT: * 61 yo diabetic M, POD #1 s/p bilateral knees * Oral agents on hold, currently receiving basal/bolus regimen for steroid- induced hyperglycemia * Patient tolerated ~.4 units/kg of Lantus X 1 yesterday and BSGs trended down to 129 mg/dL this AM * Continue with same approach by giving one more Lantus dose to get patient through the next 24 hours * Continue tight Novolog until dinner, then add back oral medications and loosen to stress of 2 * For POD #2, consider small dose of Lantus if BSGs >140, otherwise, maintain Novolog until discharge * ADA & AACE recommend a goal blood sugar range 140-180 mg/dl for the majority of critically ill & non-critically ill patients. However, more stringent targets may be selected in individual cases. Tighten to 110-140 mg/dL as it is crucial to maintain tight control immediately post-op to avoid infection. PLAN FOR INPATIENT GLYCEMIC CONTROL: * Restart metformin 1000 mg PO BIDM starting with dinner this evening * Restart Januvia 100 mg PO QAM POD #2 * Basal insulin with LANTUS * 35 units X 1 given POD #0 * 26 units X 1 given POD #1 * Consider 10-18 units POD #2 based on BSG trend * Correctional Insulin with NOVOLOG per scale ACHS + 0200 check * Goal Range: Low 110 mg/dL - High 140 mg/dL * Correction Factor: 25 mg/dL/unit * Nutritional / Prandial insulin per carb ratio of 1 unit per 8 grams CHO consumed * Please note that the plan above was derived based on current level of insulin resistance and hospital stress. These recommendations are appropriate for inpatient admission only. Plan of care upon discharge will need to be reassessed to avoid potential outpatient hypo/hyperglycemia. Thank you.
[2016-10-08] MEDS: METFORMIN HCL 500 MG TAB PO SCH (18:17)
[2016-10-08] MEDS: SENNA 8.6 MG TAB PO SCH (20:35)
--- NOTE | 2016-10-08 22:49 | Progress Note ---
Subjective Date of Service: Oct 08, 2016. Subjective Pt evaluation today including: conversation w/ patient, physical exam, lab review, review of inpatient medication list Pain: more pain in right knee, moderate PO Intake: adequate Voiding: no voiding problems doing well, no chest pain or dyspnea eating well reviewed labs, stable Review of Systems Musculoskeletal: + joint pain (bilateral knees) All Other Systems: Reviewed and Negative Medications Current Inpatient Medications Medications (Trade) Dose Ordered Sig/Patric Route Start Time Stop Time Status Last Admin Dose Admin Celecoxib (CeleBREX CAP) 200 mg BID PO 10/09/16 21:00 11/08/16 20:59 Oxycodone HCl (Roxicodone Immediate Rel Tab) 1 TABLET FOR PAIN RATING... Q4H PRN PO 10/07/16 11:30 10/21/16 11:29 10/08/16 11:33 10 MG Oxycodone HCl (Oxycontin Tab) 10 mg Q12 PO 10/07/16 21:00 10/21/16 20:59 10/08/16 20:38 10 MG Morphine Sulfate (MoRPHine SULFATE INJ) 2 mg Q4H PRN IV 10/07/16 11:30 10/21/16 11:29 10/08/16 02:09 2 MG Acetaminophen (Tylenol Tab) 1,000 mg Q8H PO 10/07/16 22:00 11/06/16 21:59 10/08/16 22:00 1,000 MG Magnesium Hydroxide (Milk Of Magnesia Susp) 30 ml Q6H PRN PO 10/07/16 11:30 11/06/16 11:29 Bisacodyl (Dulcolax Supp) 10 mg DAILY PRN [place] 10/07/16 11:30 11/06/16 11:29 Sodium Biphosphate/ Sodium Phosphate (Fleet Enema) 132 ml DAILY PRN [place] 10/07/16 11:30 11/06/16 11:29 Senna (Senokot Tab) 17.2 mg HS PO 10/07/16 21:00 11/06/16 20:59 10/08/16 20:35 17.2 MG Diphenhydramine HCl (Benadryl Inj) 25 mg Q8H PRN IV 10/07/16 11:30 11/06/16 11:29 Al Hydrox/Mg Hydrox/Simethicone (Maalox Max Susp) 15 ml Q4H PRN PO 10/07/16 11:30 11/06/16 11:29 Zolpidem Tartrate (Ambien Tab) 5 mg HSZ PRN PO 10/07/16 11:30 11/06/16 11:29 Multivitamins (Multivitamin Tab) 1 tab QAM PO 10/08/16 09:00 11/07/16 08:59 10/08/16 08:34 1 TAB Ondansetron HCl (Zofran Inj) 4 mg Q6H PRN IV 10/07/16 11:30 11/06/16 11:29 10/08/16 20:34 4 MG Pantoprazole Sodium (Protonix Tab) 40 mg QAM PO 10/08/16 09:00 11/07/16 08:59 10/08/16 08:34 40 MG Ketorolac Tromethamine (Toradol Inj) 30 mg Q6H IV. 10/07/16 16:00 10/09/16 10:01 10/08/16 22:00 30 MG Aspirin (Ecotrin Tab) 81 mg BID PO 10/07/16 21:00 11/06/16 20:59 10/08/16 20:35 81 MG Miscellaneous Information (Consult Glycemic Management Pharmacy) 1 ea UD PRN N/A 10/07/16 12:00 11/06/16 11:59 Glucose (Glucose 40% Gel) 15-30 GRAMS 15 GRAMS... UD PRN PO 10/07/16 12:00 11/06/16 11:59 Glucose (Glucose Chew Tab) 4-8 Tablets 4 Tabl... UD PRN PO 10/07/16 12:00 11/06/16 11:59 Dextrose (Dextrose 50% 50ML Syringe) 25-50ML OF 50% DW IV FOR... UD PRN IV 10/07/16 12:00 11/06/16 11:59 Glucagon (Glucagon Inj) 1 mg UD PRN SQ 10/07/16 12:00 11/06/16 11:59 Insulin Aspart (novoLOG ASPART) SLIDING SCALE G... ACHS SC 10/07/16 17:15 11/06/16 17:14 10/08/16 20:43 3 UNITS Hydralazine HCl (HydrALAZINE INJ) 10 mg Q6H PRN IV. 10/07/16 13:45 11/06/16 13:44 Lisinopril (Zestril Tab) 30 mg QAM PO 10/09/16 09:00 11/08/16 08:59 Metformin HCl (Glucophage Tab) 1,000 mg BIDM PO 10/08/16 17:45 11/07/16 17:44 10/08/16 18:17 1,000 MG Sitagliptin Phosphate (Januvia Tab) 100 mg DAILY PO 10/09/16 09:00 11/08/16 08:59 Objective Vital Signs Date Time Temp Pulse Resp B/P (MAP) Pulse Ox O2 Delivery O2 Flow Rate FiO2 10/08/16 15:38 Room Air 10/08/16 15:20 36.7 65 18 133/81 (98) 93 Room Air 10/08/16 12:02 36.8 65 18 123/67 (85) 96 Room Air 10/08/16 09:46 Room Air 10/08/16 08:24 65 18 121/76 (91) 10/08/16 08:03 36.8 67 18 115/74 (88) 96 Room Air 10/08/16 07:47 36.5 66 18 113/79 (90) 96 Room Air 10/08/16 07:27 36.4 69 18 108/67 (81) 93 Room Air 10/08/16 03:35 36.3 63 16 115/69 (84) 96 Room Air 10/08/16 03:20 36.4 61 16 108/65 (79) 95 Room Air 10/08/16 03:05 36.5 61 16 109/68 (82) 95 Room Air 10/08/16 00:10 Room Air 10/07/16 23:45 36.3 61 18 121/83 (96) 97 Nasal Cannula 2.0 Physical Exam General Appearance: WD/WN, no apparent distress Eyes: normal inspection, EOMI, sclerae normal ENT: normal ENT inspection, hearing grossly normal, pharynx normal Neck: supple, no adenopathy, no JVD, trachea midline Respiratory/Chest: chest non-tender, lungs clear, normal breath sounds, no respiratory distress, no accessory muscle use Cardiovascular: regular rate, rhythm, no edema, no gallop, no JVD, no murmur Abdomen: normal bowel sounds, non tender, soft, no organomegaly Extremities: no pedal edema, no calf tenderness, normal capillary refill, pelvis stable, + pertinent finding (knee pain, swelling, decreased ROM bilaterally) Neurologic/Psychiatric: weblogic administrator II-XII nml as tested, no motor/sensory deficits, alert, normal mood/affect, oriented x 3 Skin: normal color, warm/dry, no rash Laboratory Results Last 24 Hours Test 10/08/16 02:06 10/08/16 05:24 10/08/16 08:06 10/08/16 12:07 Bedside Glucose 111 mg/dl 129 mg/dl 112 mg/dl White Blood Count 6.21 K/uL Red Blood Count 3.97 M/uL Hemoglobin 12.4 g/dL Hematocrit 35.7 % Mean Corpuscular Volume 89.9 fL Mean Corpuscular Hemoglobin 31.2 pg Mean Corpuscular Hemoglobin Concent 34.7 g/dl RDW Standard Deviation 44.3 fL RDW Coefficient of Variation 13.5 % Platelet Count 140 K/uL Mean Platelet Volume 9.2 fL Sodium Level 138 mmol/L Potassium Level 3.8 mmol/L Chloride Level 107 mmol/L Carbon Dioxide Level 24 mmol/L Anion Gap 7.0 mmol/L Blood Urea Nitrogen 31 mg/dl Creatinine 0.87 mg/dl Est Creatinine Clear Calc Drug Dose 110.2 ml/min Estimated GFR () 109.5 Estimated GFR (Non- 94.5 BUN/Creatinine Ratio 35.2 Random Glucose 142 mg/dl Calcium Level 7.1 mg/dl Test 10/08/16 17:22 10/08/16 17:24 10/08/16 20:32 Bedside Glucose 193 mg/dl 202 mg/dl 199 mg/dl Assessment and Plan Patient is a 61 y/o male, with PMHx of HTN and T2DM, s/p bilateral total knee arthroplasty by Dr. Salmon on 10/07. Osteoarthritis s/p bilateral total knee arthroplasty by Dr. Salmon on 10/07: - Surgical/pain management, PT/OT, and DVT prophylaxis as per primary team - breathing well, eating well, + flatus - plans to go to [facility] tomorrow HTN: - Hold Lisinopril 30 mg daily pending postop PRP, will resume on 10/09, Cr is normal today - Hydralazine 10 mg IV q6 hrs PRN for sbp >180 or dbp >100 T2DM- HgbA1c 7.2% on 09/24: - Hold Januvia and Metformin but can resume on discharge - BSG ACHS and sliding insulin scale, sugars well controlled GI prophylaxis: Protonix DVT prophylaxis: As per primary team- ASA 81 mg Code Status: LEVEL I, FULL will sign off at this time, medically stable for discharge, please resume all prior home medications on discharge
[2016-10-09 00:10] VITALS: BP 123/76; PULSE 73; TEMP 36.6; O2SAT 98
[2016-10-09] MEDS: OXYCODONE HCL IR 5 MG TAB (IMMEDIATE RELEASE) PO PRN ×3 (00:44→15:22)
[2016-10-09] MEDS: KETOROLAC TROMETHAMINE 30 MG/ML VIAL IV. SCH ×2 (04:15→10:56)
[2016-10-09] MEDS: ACETAMINOPHEN 500 MG TAB PO SCH ×2 (06:09→14:46)
[2016-10-09 06:44] VITALS: BP 154/80; PULSE 72; TEMP 36.6; O2SAT 98
[2016-10-09] MEDS: ONDANSETRON INJ 2 MG/ML 2 ML VIAL IV PRN (07:22)
[2016-10-09] MEDS: OXYCODONE HCL 10 MG TABCR (OXYCONTIN) PO SCH (07:23)
[2016-10-09] MEDS: METFORMIN HCL 500 MG TAB PO SCH ×2 (07:24→17:47)
[2016-10-09] MEDS: PANTOprazole SOD 40 MG TAB PO SCH (07:25)
[2016-10-09] MEDS: ASPIRIN 81 MG ECTAB PO SCH (07:25)
[2016-10-09] MEDS: MULTIVITAMIN TAB PO SCH (07:25)
[2016-10-09] MEDS: INSULIN ASPART 100 UNITS/ML 3 ML PEN SC SCH ×3 (07:31→17:15)
--- NOTE | 2016-10-09 07:43 | Orthopedic Progress Note ---
Orthopedic Progress Note Date of Service Oct 09, 2016. Subjective Post OP Day: 2 Reports: feeling well, Denies: chest pain, SOB, nausea / vomiting, light headedness, calf pain Objective calves soft nontender, N/V intact, dressing C/D/I, A&O x3, toes mobile Date Time Temp Pulse Resp B/P (MAP) Pulse Ox O2 Delivery O2 Flow Rate FiO2 10/09/16 06:44 36.6 72 16 154/80 (104) 98 Room Air 10/09/16 00:40 Room Air 10/09/16 00:10 36.6 73 16 123/76 (92) 98 Room Air 10/08/16 15:38 Room Air 10/08/16 15:20 36.7 65 18 133/81 (98) 93 Room Air 10/08/16 12:02 36.8 65 18 123/67 (85) 96 Room Air 10/08/16 09:46 Room Air 10/08/16 08:24 65 18 121/76 (91) 10/08/16 08:03 36.8 67 18 115/74 (88) 96 Room Air 10/08/16 07:47 36.5 66 18 113/79 (90) 96 Room Air Assessment & Plan Assessment: POD#2 SP BL TKAS Inhouse Planning Pain Management: Celebrex, Oxycontin, PO Tylenol, Oxy IR DVT Prophylaxis: TEDs, SCDs, ASA Discharge Planning Discharge Planning: rehab hospital (REQUESTING REFERRAL TO [facility]. S TABLE FOR TRANSFER TODAY IF ACCEPTED.)
[2016-10-09] MEDS ORDERED: CLB200 PO (07:47)
[2016-10-09] MEDS ORDERED: ONDA8TAB6 PO (07:47)
[2016-10-09] MEDS ORDERED: SNK PO (07:47)
[2016-10-09] MEDS ORDERED: OXYSR10 PO (07:47)
[2016-10-09] MEDS ORDERED: ACET-24 PO (07:47)
[2016-10-09] MEDS ORDERED: ASPEC81 PO (07:47)
[2016-10-09] MEDS ORDERED: RXC5 PO (07:47)
--- NOTE | 2016-10-09 07:49 | Discharge Instructions ---
Discharge Instructions Date of Service Oct 09, 2016. Admission Reason for Admission: Bilateral Knee Osteoarthritis Discharge Discharge Diagnosis / Problem: SP BL TKAS Discharge Goals Goal(s): Decrease discomfort, Improve function, Increase independence Activity Recommendations Activity Level: Assistance Required Therapies: Physical Therapy, Weight Bearing Status (WBAT WITH WALKER), Occupational Therapy . Additional Information Patient informed of condition: Yes Advance Directives: Yes DNR: No Level of Care: Acute Rehab Communicable Disease: No Prognosis: Stable Instructions / Follow-Up Instructions / Follow-Up ACTIVITY RECOMMENDATIONS: SELF CARE INSTRUCTIONS AFTER TOTAL KNEE REPLACEMENT A. You may need to continue a physical therapy program after discharge from the hospital. There are several options available to you. Your doctor will assist you in selecting the best one for you. 1. An out-patient facility 2 to 3 times a week for therapy or home therapy. 2. Continue working on all exercises taught to you in the hospital. Your goals should be to increase bending of your knee to 90 degrees and beyond and to fully straighten your knee. B. You may progress at your own pace from walking with a walker or crutches to a cane; then to no assistive devices. C. Make walking a part of your daily routine. Be up as much as comfortable with rest periods throughout the day. Rest with leg elevation is very important. Use the ice wrap frequently for the first 3-4 weeks. D. There are no restrictions on activities. You may ride in a car, shop, participate in group managing director and all social activities. E. Wear the long elastic stockings (LIV hose) 20 hours a day for 2 weeks after surgery. They can be removed several times a day for laundering and for a bath. F. You may shower, no tub baths until cleared by your doctor. SPECIAL CARE INSTRUCTIONS: VERY IMPORTANT TO READ AND REVIEW A. There are a few signs you need to watch for after you are home. Call [facility] if you notice any of the followin. Increased severe knee pain. Some pain is expected especially when you exercise. 2. Increased swelling in your leg or knee; pain or swelling of the calf muscle in either lower leg. 3. Any fluid drainage from the incision. 4. Shortness of breath or chest pain. B. Please call [facility] at if you have any concerns or questions about your operation or recovery. The doctor or his nurse will return your call promptly. C. You must take antibiotics before dental work, bladder, bowel or other surgery. Your doctor will provide you with a permanent care to carry describing this precaution. IMPORTANT: * REMEMBER TO TAKE ASPIRIN, 81 MG, TWICE DAILY FOR 4 WEEKS UNLESS OTHERWISE DIRECTED. THIS IS YOUR BLOOD THINNER. * HIGH RISK PATIENTS MAY BE PRESCRIBED A STRONGER BLOOD THINNER. THIS WILL BE PROVIDED AT DISCHARGE. * CALL IF INCREASED PAIN, REDNESS, DRAINAGE OR FEVER GREATER THAT 101. * WEAR LIV HOSE 20 HOURS PER DAY FOR 2 WEEKS. * YOU MAY HAVE A LARGE BAND-AID LIKE DRESSING (SILVERON). THIS WILL REMAIN ON YOUR INCISION FOR 7 DAYS, THEN CAN BE REMOVED. ZIPLINE CLOSURE TO REMAIN ON UNTIL FOLLOW UP VISIT. IF INCISION IS LEAKING THROUGH DRESSING, CALL THE OFFICE . FOLLOW UP VISIT: If appointment is not already scheduled: Please call [facility] [place] [facility] to make a follow-up appointment for 2 weeks after your surgery at . Current Hospital Diet Patient's current hospital diet: Diabetes Type 2 Diet Discharge Diet Recommended Diet: Regular Diet Procedures Procedures Performed: Bilateral Total Knee Arthroplasty Pending Studies Studies pending at discharge: no Laboratory Results Hemoglobin A1c Test 09/24/16 16:06 Range/Units Estimated Average Glucose 160 mg/dl Hemoglobin A1c 7.2 H 4.5-5.6 % Medical Emergencies . Who to Call and When: Medical Emergencies: If at any time you feel your situation is an emergency, please call 911 immediately. . Non-Emergent Contact Non-Emergency issues call your: Surgeon . . "Provider Documentation" section prepared by Lawanda Garcia. . Core Measure Problem Core Measures: None
[2016-10-09] MEDS ORDERED: LISINOPRIL 10 MG TAB PO SCH (09:00)
[2016-10-09] MEDS ORDERED: SITAGLIPTIN 100 MG TAB PO SCH (09:00)
--- NOTE | 2016-10-09 13:27 | Progress Note ---
Subjective Date of Service: Oct 09, 2016. Subjective Pt evaluation today including: conversation w/ patient, physical exam, chart review, lab review, review of studies, review of inpatient medication list Resting comfortably in bed No concerns at this time States pain adequately controlled Review of Systems Constitutional: No fever, No chills Respiratory: No cough, No sputum, No wheezing, No shortness of breath, No dyspnea on exertion Cardiac: No chest pain, No orthopnea, No PND, No edema, No claudication Abdomen: No pain, No nausea, No vomiting, No diarrhea, No constipation Musculoskeletal: + joint pain, No muscle pain, No swelling, No calf pain Male : No dysuria, No urinary frequency, No incontinence, No slowing stream Neurologic: No memory loss, No paralysis, No weakness, No numbness/tingling Psychiatric: No depression symptoms, No anhedonism, No anxiety, No insomnia Endo: No fatigue, No excessive thirst Skin: No rash, No itch Objective Vital Signs Date Time Temp Pulse Resp B/P (MAP) Pulse Ox O2 Delivery O2 Flow Rate FiO2 10/09/16 09:20 Room Air 10/09/16 06:44 36.6 72 16 154/80 (104) 98 Room Air 10/09/16 00:40 Room Air 10/09/16 00:10 36.6 73 16 123/76 (92) 98 Room Air 10/08/16 15:38 Room Air 10/08/16 15:20 36.7 65 18 133/81 (98) 93 Room Air Physical Exam General Appearance: WD/WN, no apparent distress Eyes: normal inspection, PERRL, EOMI, sclerae normal Neck: supple, no adenopathy, thyroid normal, no JVD Respiratory/Chest: chest non-tender, lungs clear, normal breath sounds, no respiratory distress Cardiovascular: regular rate, rhythm, no edema, no gallop, no JVD Abdomen: normal bowel sounds, non tender, soft, no organomegaly Extremities: normal range of motion, non-tender, normal inspection, no pedal edema Neurologic/Psychiatric: no motor/sensory deficits, alert, normal mood/affect, oriented x 3 Laboratory Results Last 24 Hours Test 10/08/16 17:22 10/08/16 17:24 10/08/16 20:32 10/09/16 06:29 Bedside Glucose 193 mg/dl 202 mg/dl 199 mg/dl 86 mg/dl Test 10/09/16 12:09 Bedside Glucose 94 mg/dl Assessment and Plan Patient is a 61 y/o male, with PMHx of HTN and T2DM, s/p bilateral total knee arthroplasty by Dr. Salmon on 10/07. Osteoarthritis s/p bilateral total knee arthroplasty by Dr. Salmon on 10/07: - Surgical/pain management, PT/OT, and DVT prophylaxis as per primary team - breathing well, eating well, + flatus - plans to go to [facility] - Stable from medical standpoint HTN: -Start back on lisinopril 30 mg PO daily, BP controlled - Hydralazine 10 mg IV q6 hrs PRN for sbp >180 or dbp >100 T2DM- HgbA1c 7.2% on 09/24: - Hold Januvia and Metformin but can resume on discharge - BSG ACHS and sliding insulin scale, sugars well controlled GI prophylaxis: Protonix DVT prophylaxis: As per primary team- ASA 81 mg Code Status: LEVEL I, FULL
[2016-10-09 16:13] VITALS: BP 129/75; PULSE 75; TEMP 36.9; O2SAT 95
[2016-10-09] MEDS ORDERED: CeleBREX 200 MG CAP PO SCH (21:00)
--- NOTE | 2016-10-22 08:43 | DISCHARGE SUMMARY ---
DISCHARGE DIAGNOSIS: Degenerative joint disease, bilateral knees. SECONDARY DIAGNOSIS: Type 2 diabetes. CONSULTS: Dr. Zimmer. COMPLICATIONS: None. PROCEDURE: The patient underwent bilateral total knee arthroplasty with Dr. Salmon on 10/07/2016. BRIEF HISTORY: Please see previously dictated history and physical. HOSPITAL SUMMARY: The patient was admitted on the above day for the above procedure. Procedure went without complication. Postop day 1, the patient was feeling well without complaints. He denied chest pain or shortness of breath. Vital signs were stable. He was afebrile. Dressing was clean, dry and intact. He was neurovascularly intact. Calves are soft and nontender bilaterally. He had OrthoPAT hooked up to his drain. Hemoglobin was 12.4. The patient began physical therapy per protocol. Referral was placed to [facility]. Postop day 2, the patient continued to improve. He denied chest pain or shortness of breath. Vital signs were stable. He was afebrile. Incisions were clean, dry and intact. He was neurovascularly intact. Calves were soft and nontender. The patient progressed with physical therapy. He was transferred to [facility] later that day in stable condition. For further review please see the chart. Lab, x-ray data and discharge instructions as per chart.
== END 2016-10-09 18:15 | DRG 462 ==
LOC: C.ACU 05:58 → C.3E 07:15 → ENRESERV 12:10
PROC: 0SRC0J9 Replacement of Right Knee Joint with Synthetic Substitute, Cemented, Open Approach (ICD-10-PCS; principal; 2016-10-07 08:30)
PROC: 0SRD0J9 Replacement of Left Knee Joint with Synthetic Substitute, Cemented, Open Approach (ICD-10-PCS; principal; 2016-10-07 08:30)
DX: M17.0 Bilateral primary osteoarthritis of knee (principal); I10 Essential (primary) hypertension; E11.9 Type 2 diabetes mellitus without complications; Z79.899 Other long term (current) drug therapy; Z79.84 Long term (current) use of oral hypoglycemic drugs; Z87.891 Personal history of nicotine dependence